=== PATIENT | male | born 1945 | race Caucasian/White ===

== ENCOUNTER → 2018-05-07 12:59 | Outpatient (CLI) | payer MEDICARE, BC ==
[2012-10-24 12:17] VITALS: BMI 22.9
== END | disposition home or self-care (01) ==
LOC: D.MRI 12:59
DX: M54.2 Cervicalgia (principal)

== ENCOUNTER → 2018-11-17 07:53 | Outpatient (CLI) | payer MEDICARE, BC ==
[2012-10-24 12:17] VITALS: BMI 22.9
== END | disposition home or self-care (01) ==
LOC: D.RT 07:53
PROVIDERS: ATTEND Internal Medicine Pulmonary Disease
DX: J44.9 Chronic obstructive pulmonary disease, unspecified (principal); R06.09 Other forms of dyspnea

== ENCOUNTER → 2020-03-11 11:45 | Outpatient (CLI) | payer MEDICARE, BC ==
[2012-10-24 12:17] VITALS: BMI 22.9
== END | disposition home or self-care (01) ==
LOC: D.LAB 11:45
PROVIDERS: ATTEND Internal Medicine Pulmonary Disease
DX: Z11.59 Encounter for screening for other viral diseases (principal)

== ENCOUNTER → 2020-03-14 12:06 | Outpatient (CLI) | payer MEDICARE, BC ==
[2012-10-24 12:17] VITALS: BMI 22.9
== END | disposition home or self-care (01) ==
LOC: D.RT 03-02 14:00 → D.CT 03-02 15:00 → D.RT 12:06
PROVIDERS: ATTEND Internal Medicine Pulmonary Disease
DX: J44.9 Chronic obstructive pulmonary disease, unspecified (principal)